=== PATIENT | male | born 1950 | race Caucasian/White ===

== ENCOUNTER 2023-07-30 05:45 | Inpatient (IN) | payer MEDICARE, MEDICAID ==
[~2023-07-30] VITALS: Ht 180.3 cm; Wt 87.5 kg
[~2023-07-30 05:45] MED LIST: AMLO5TAB88 PO; ATOR20TA PO; BICA50TA7 PO; CHOL4PAC5 PO; CRAN450T10 PO; DOCU-138 PO; ERGO1250 PO; FAMO20TA8 PO; FERR325T6 PO; LACT1CAP77 PO; SENN-257 PO; TAMS-11 PO; TRAM50TA3 PO; [UNRECOGNIZED DRUG - CODE] PO
[2023-07-30 06:21] LABS: PARTIAL THROMBOPLASTIN TIME 31.6 sec (23.4-31.0); PROTHROMBIN TIME 10.7 sec (9.6-11.0)
[2023-07-30] MEDS ORDERED: CEFAZOLIN SODIUM 1000MG/VIAL ONE (07:18)
[2023-07-30] MEDS ORDERED: FENTANYL CITRATE/PF 50MCG/ML 2ML VIAL ONE (07:19)
[2023-07-30] MEDS ORDERED: LIDOCAINE HCL 1% 10 MG/ML 10ML VIAL ONE (07:19)
[2023-07-30] MEDS ORDERED: PROPOFOL 200MG/20ML VIAL IV ONE (07:19)
[2023-07-30] MEDS ORDERED: GENTAMICIN SULF 40MG/ML 2ML VIAL ONE (07:50)
[2023-07-30] MEDS ORDERED: HYDROMORPHONE HCL/PF 2MG/ML CPJ IV PRN (09:45)
[2023-07-30] MEDS ORDERED: GENTAMICIN 80MG PREMIX 100 ML IV SCH (09:45)
[2023-07-30] MEDS ORDERED: HYDROCODONE/ACETAMINOPHEN 5/325MG TABLET PO PRN (09:45)
[2023-07-30] MEDS ORDERED: MAGNESIUM HYDROXIDE 400MG/5ML 30ML UDC PO PRN (09:45)
[2023-07-30] MEDS ORDERED: ONDANSETRON HCL 4MG/2ML INJ IV PRN (09:45)
[2023-07-30 11:33] LABS: HEMATOCRIT 35.6 % (42.0-52.0); HEMOGLOBIN 11.8 g/dL (14.0-18.0)
[2023-07-30 12:27] LABS: POTASSIUM 4.4 mEq/L (3.5-5.1)
[2023-07-30] MEDS ORDERED: NALOXONE HCL 0.4MG/ML VIAL IV PRN (14:30)
[2023-07-30 20:00] VITALS: BP 108/60; PULSE 88; RESP 18; TEMP 98.6
[2023-07-30] MEDS: DOCUSATE SODIUM 100MG CAPSULE PO SCH (21:00)
[2023-07-30] MEDS: FERROUS SULFATE 325MG TABLET PO SCH (22:48)
[2023-07-30 23:57] VITALS: BP 108/60; PULSE 88; RESP 18; TEMP 98.1
[2023-07-31] VITALS (8 sets, daily range): BP systolic 90–134; BP diastolic 50–68; PULSE 74–100; RESP 17–20; TEMP 97.7–100.8
[2023-07-31 07:28] LABS: HEMATOCRIT. 32.4 % (42.0-52.0); MEAN CORPUSCULAR HEMOGLOBIN 29.6 pg (28.0-32.0); MEAN CORPUSCULAR HGB CONC 33.9 g/dL (31.0-37.0); MEAN CORPUSCULAR VOLUME 87.2 fL (80.0-94.0); MEAN PLATELET VOLUME 7.2 fl (7.4-10.4); PLATELET 196 x1000/uL (130-400); RED BLOOD CELL COUNT 3.71 mill/uL (4.7-6.1); RED CELL DISTRIBUTION WIDTH 13.5 % (11.6-14.6); WHITE BLOOD COUNT 13.4 x1000/uL (4.5-11.0)
[2023-07-31 07:44] LABS: DIFFERENTIAL COMMENT 1
[2023-07-31 07:49] LABS: POTASSIUM 4.6 mEq/L (3.5-5.1)
[2023-07-31 07:57] LABS: CALCIUM 8.6 mg/dL (8.5-10.1); CREATININE 1.2 mg/dL (0.6-1.3)
[2023-07-31] MEDS: FERROUS SULFATE 325MG TABLET PO SCH ×3 (08:56→16:52)
[2023-07-31] MEDS: BICALUTAMIDE 50 MG TABLET PO SCH (08:57)
[2023-07-31] MEDS: DOCUSATE SODIUM 100MG CAPSULE PO SCH ×2 (08:57→16:47)
[2023-07-31] MEDS ORDERED: LEVOFLOXACIN 500MG TABLET PO SCH (11:00)
[2023-07-31 18:15] LABS: PLATELET ESTIMATE NORMAL
[2023-08-01] VITALS: BP 104/41; PULSE 98; RESP 16; TEMP 97.7
[2023-08-01 07:38] LABS: HEMATOCRIT 27.2 % (42.0-52.0); HEMOGLOBIN 9.2 g/dL (14.0-18.0)
[2023-08-01] MEDS: FERROUS SULFATE 325MG TABLET PO SCH ×3 (07:50→18:17)
[2023-08-01 08:00] VITALS: BP 123/67; PULSE 81; RESP 20; TEMP 99
[2023-08-01 08:05] LABS: POTASSIUM 3.8 mEq/L (3.5-5.1)
[2023-08-01] MEDS: DOCUSATE SODIUM 100MG CAPSULE PO SCH ×2 (09:00→17:00)
[2023-08-01] MEDS: BICALUTAMIDE 50 MG TABLET PO SCH (09:00)
[2023-08-01] MEDS: SULFAMETHOXAZOLE/TRIMETHOPRIM 800/160MG TABLET PO SCH ×2 (09:45→17:00)
[2023-08-01 12:00] VITALS: BP 123/55; PULSE 85; RESP 17; TEMP 98.6
[2023-08-01 16:00] VITALS: BP 120/56; PULSE 70; RESP 17; TEMP 98.3
[2023-08-01 20:00] VITALS: BP 120/63; PULSE 93; RESP 18; TEMP 98.9
[2023-08-02 08:00] VITALS: BP 133/47; PULSE 82; RESP 19; TEMP 97.7
[2023-08-02] MEDS: BICALUTAMIDE 50 MG TABLET PO SCH (08:45)
[2023-08-02] MEDS: FERROUS SULFATE 325MG TABLET PO SCH ×2 (08:46→12:24)
[2023-08-02] MEDS: DOCUSATE SODIUM 100MG CAPSULE PO SCH ×2 (08:46→08:49)
[2023-08-02] MEDS: SULFAMETHOXAZOLE/TRIMETHOPRIM 800/160MG TABLET PO SCH (08:46)
[2023-08-02 12:00] VITALS: BP 116/50; PULSE 74; RESP 18; TEMP 98.1
[2023-08-02 16:36] VITALS: BP 131/78; PULSE 78; TEMP 97.5; O2SAT 99
== END 2023-08-02 18:16 | DRG 713 ==
LOC: OR 05:45 → 6WST 21:04
PROVIDERS: ADMIT Urology; ATTEND Urology
PROC: 0VB08ZZ Excision of Prostate, Via Natural or Artificial Opening Endoscopic (ICD-10-PCS; principal; 2023-07-30)
DX: N40.1 Benign prostatic hyperplasia with lower urinary tract symptoms (principal); E87.1 Hypo-osmolality and hyponatremia; N13.8 Other obstructive and reflux uropathy; D64.9 Anemia, unspecified; R33.8 Other retention of urine; Z82.3 Family history of stroke
CPT/HCPCS: 36415; 71045; 80048; 80051; 85014; 85018; 85025; 88305; 93005; J0690; J1580; J2704; J3010; J3490